=== PATIENT | male | born 1980 | race Caucasian/White ===

== ENCOUNTER 2021-05-18 15:41 | Emergency (ER) | payer BC ==
[2021-05-18] MEDS ORDERED: Sodium Chloride 0.9% 1,000 ML IV ONE (15:42)
[2021-05-18] MEDS ORDERED: Diltiazem 25 MG/5 ML SDV IVPUSH ONE (15:45)
[2021-05-18] MEDS ORDERED: Magnesium Sulfate/Water 2 GM in Premix Bag 1 BAG IV ONE (15:57)
[2021-05-18] MEDS ORDERED: Metoprolol Tartrate 25 MG Tab PO ONE (16:02)
[2021-05-18] MEDS ORDERED: Magnesium Sulfate/Water 0 ML ONE (16:10)
[2021-05-18 16:30] LABS: BLOOD UREA NITROGEN,BUN 19 mg/dL (7.0-18.0); CARBON DIOXIDE,CO2 22.9 mmol/L (21.0-32.0); CHLORIDE,CL 98 mmol/L (98-107); GLUCOSE RANDOM 95 mg/dL (74-106); POTASSIUM,K 3.7 mmol/L (3.5-5.1); SODIUM,NA 137 mmol/L (136-148)
== END 2021-05-18 16:52 | disposition home or self-care (01) ==
LOC: MW.ED 15:41
DX: I48.91 Unspecified atrial fibrillation (principal); I10 Essential (primary) hypertension; Z79.899 Other long term (current) drug therapy
CPT/HCPCS: 36415; 71045; 80053; 83735; 84484; 85025; 93005; 96374; 99285; A9270; J3490; J7030